=== PATIENT | female | born 1975 | race Caucasian/White ===

== ENCOUNTER 2022-02-18 11:57 | Day surgery (SDC) | payer OTHER, SELFPAY ==
[2022-02-18] VITALS (7 sets, daily range): BP systolic 105–144; BP diastolic 68–82; PULSE 54–76; RESP 14–18; TEMP 36.8–37.4; O2SAT 97–100; BMI 23.2
--- NOTE | 2022-02-18 12:49 | CRLHL7_ITS ---
For Patients: As a result of the Century Cures Act, medical imaging exams and procedure reports are released immediately into your electronic medical record. You may view this report before your referring provider. If you have questions, please contact your health care provider. INDICATION: Abdominal pain. TECHNIQUE: Ultrasound abdomen limited. Sonographic images of the right upper quadrant were obtained using briceno-scale and color Doppler images. COMPARISON: None. FINDINGS: Liver: Normal in size and echotexture. Hypoechoic lesion within the right hepatic lobe measuring 1.6 x 0.9 x 1.7 cm. No intrahepatic biliary dilatation. Gallbladder: Layering debris within the gallbladder lumen likely representing sludge. The gallbladder is distended measuring 8.1 x 4.8 centimeter. The gallbladder wall measures 4 mm. No definite stones are seen. No pericholecystic fluid. Rouge Sifter reports a positive Mckeon`s sign. Common bile duct: 4 mm. Pancreas: Visualized portions of the head and body appear uniform. The tail is obscured by bowel gas artifact.. Right kidney: Normal in size. Normal echotexture and cortex. No masses, stones, or hydronephrosis. Vasculature: Proximal abdominal aorta and IVC are normal. IMPRESSION: Sludge filled and distended gallbladder with wall thickening and binder caser reported positive Mckeon sign. Findings compatible with acute cholecystitis. CBD measures 4 millimeters. Hyperechoic right hepatic lobe lesion measuring up to 1.7 cm which most commonly represents a hemangioma. Dictated by Mani De La Cruz MD @ 02/18/2022 3:01:41 PM (Electronically Signed)
--- NOTE | 2022-02-18 13:10 | ED_ITS ---
HPI - General Adult General Date Seen: 02/18/22 Chief complaint: Abdominal Pain Stated complaint: Chest pain, fever Time Seen by Provider: 02/18/22 12:08 Source: patient History of Present Illness HPI narrative: Patient is a 46-year-old woman who presents with abdominal pain. She says that she started to feel poorly the evening before last, with just fatigue. She woke up at 4:00 a.m. yesterday, feeling vaguely ill, and by yesterday afternoon, she had some abdominal pain which was poorly localized on the right side of her abdomen. She had developed maybe a little bit of nausea, some anorexia. She has not had any vomiting. She woke up at 2:00 a.m. in the morning this morning, with more significant abdominal pain and nausea. She still has not vomited, has not had any diarrhea. She says she had a fever yesterday of 101.4, but has not had fever since then. She has never had abdominal pain like this. She tells me that 17 years ago when she was , she had a right upper quadrant ultrasound which showed sludge but has never been diagnosed with gallstones. She does feel that this pain is in the right upper quadrant now, and is worried about possible cholecystitis. 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 She has never had any abdominal surgeries. She has had 3 prior colonoscopies secondary to constipation and right upper quadrant pain, has never had any significant abnormalities. Does not have significant diverticulosis, does not have inflammatory bowel disease. Related Data Home Medications Medication Instructions Recorded Confirmed bupropion HCl 150 mg 24 hr tablet, 150 mg PO DAILY 02/18/22 02/18/22 extended release Allergies Allergy/AdvReac Type Severity Reaction Status Date / Time Penicillins Allergy Severe Hives Verified 02/18/22 12:12 [facility] Medical History No significant past medical history Surgical History (Updated 02/18/22 @ 13:26 by Lita Persaud RN) H/O knee surgery History of placement of ear tubes History of tonsillectomy and adenoidectomy S/P breast implant, saline Social History Smoking Status: Never smoker How often do you have a drink containing alcohol: 2-3 times a week AUDIT-C Alcohol total score: 3 Non-prescribed substance use: denies use Exam Const: Vital Signs, click to edit/add: Vital Signs - 24 hr 02/18/22 12:07 02/18/22 16:03 02/18/22 16:30 Temperature 99.3 F Pulse Rate [Right Pulse Oximeter] 76 64 70 Respiratory Rate 18 16 16 Blood Pressure [Ri ght Upper Arm] 119/78 121/68 144/82 H Pulse Oximetry 100 98 99 Course Course Hospital Course: Following initial evaluation, an IV was placed, she was given Toradol and Zo edilia, normal saline. Ponce improved after that for some period of time although she did develop additional pain later and was given 4 mg of morphine. I looked with the bedside ultrasound, she did have a distended gallbladder, sludge, appeared to have some wall thickening 2. Did not have any pericholecystic fluid. I did not see any obvious gallstones. We discussed how to proceed, in terms of doing a right upper quadrant ultrasound versus CT scan. Her story was not entirely typical for cholecystitis in that she did not develop right upper quadrant pain right away, sort of had this indolent course where she had nausea, just sort of felt poorly and then ultimately developed more vague right abdominal pain that now seems to have settled more in the right mid and upper abdomen. Other considerations included appendicitis, diverticulitis, colitis., hepatitis, pancreatitis. Discussed that these other diagnoses would not be found with ultrasound, and that we might ultimately have to gone to CT. She was comfortable with that we decided to start with ultrasound. Labs overall were reassuring, white blood cell count was normal, CRP was elevated at 14. LFTs were normal. Lipase was normal. Right upper quadrant ultrasound by my review also showed wall thickening, wall at 4 mm, sludge, distended gallbladder. Read by radiology as follows:IMPRESSION: Sludge filled and distended gallbladder with wall thickening and cell technician reported positive Mckeon sign. Findings compatible with acute cholecystitis. CBD measures 4 millimeters. Hyperechoic right hepatic lobe lesion measuring up to 1.7 cm which most commonly represents a hemangioma Case discussed with Dr. López, general surgery. She agrees with the diagnosis of cholecystitis and will admit patient to the hospital for planned cholecystectomy tomorrow Given a g of ertapenem given penicillin allergy. Vital Signs Vital signs: Initial Vital Signs Temperature 99.3 F 02/18/22 12:07 Temperature Source Temporal Artery Scan 02/18/22 12:07 Pulse Rate 76 02/18/22 12:07 Pulse Rhythm 02/18/22 12:07 Respiratory Rate 18 02/18/22 12:07 Blood Pressure 119/78 02/18/22 12:07 Blood Pressure Mean 91 02/18/22 12:07 Blood Pressure Position Sitting 02/18/22 12:07 Pulse Oximetry 100 02/18/22 12:07 Oxygen Delivery Method 02/18/22 12:07 Vital Signs Temperature 99.3 F 02/18/22 12:07 Pulse Rate 76 02/18/22 12:07 Respiratory Rate 18 02/18/22 12:07 Blood Pressure 119/78 02/18/22 12:07 Pulse Oximetry 100 02/18/22 12:07 Temperature 98.3 F 02/18/22 17:56 Pulse Rate 70 02/18/22 16:30 Respiratory Rate 16 02/18/22 16:30 Blood Pressure 144/82 H 02/18/22 16:30 Pulse Oximetry 99 02/18/22 16:30 Medical Decision Making Lab Data Labs: Lab Results 02/18/22 02/18/22 02/18/22 Range/Units 13:05 13:15 13:15 WBC 10.10 (4.50-11.00) K/uL RBC 4.51 (4.00-5.20) m/uL Hgb 13.9 (12.0-16.0) gm/dL Hct 41.4 (33.0-51.0) % MCV 92 (80-100) fL MCH 31 (26-34) pg MCHC 34 (32-36) gm/dL RDW Coeff of Elsa 13.4 (11.5-15.5) % Plt Count 261 (140-440) K/uL Neut % (Auto) 70.4 (42.0-72.0) % Lymph % (Auto) 16.2 L (20-44) % Turner % (Auto) 12.5 H (0.0-11.0) % Eos % (Auto) 0.3 (0.0-7.0) % Baso % (Auto) 0.1 (0.0-3.0) % Neut # (Auto) 7.11 H (1.7-7.0) K/uL Lymph # (Auto) 1.60 (0.90-2.90) K/uL Turner # (Auto) 1.30 H (0.00-0.90) K/UL Eos # (Auto) 0.03 (0.00-0.50) K/uL Baso # (Auto) 0.01 (0.00-0.30) K/uL Abs Immat Gran (auto) 0.05 (0.00-0.30) K/uL Sodium 136 (135-149) mmol/L Potassium 3.9 (3.6-5.1) mmol/L Chloride 101 (96-114) mmol/L Carbon Dioxide 28 (20-32) mmol/L BUN 13 (5-24) mg/dL Creatinine 0.7 (0.5-1.5) mg/dL Estimated Creat Clear 92.01 Estimated GFR 107 ml/min Glucose 112 (60-115) mg/dL Calcium 8.7 (8.4-10.6) mg/dL Total Bilirubin (0.1-1.5) mg/dL Direct Bilirubin (0.0-0.5) mg/dL AST (12-35) U/L ALT (4-35) U/L Alkaline Phosphatase (40-150) U/L C-Reactive Protein 14.4 H (0.5-1.0) mg/dL Total Protein (6.0-8.3) g/dL Albumin (3.3-5.0) g/dL Lipase (23-300) U/L Urine Color Yellow (Yellow) Urine Appearance Clear (Clear) Urine pH 6.5 (5.0-8.5) Ur Specific [place] 1.020 (1.000-1.030) Urine Protein Trace A (Negative) Urine Glucose (UA) Negative (Negative) Urine Ketones Negative (Negative) Urine Blood Trace-intact A (Negative) Urine Nitrite Negative (Negative) Urine Bilirubin Negative (Negative) Urine Urobilinogen 2.0 A (0.2-1.0) Ur Leukocyte Esterase Negative (Negative) Urine RBC 0-2 (0-2) Urine WBC 0-2 (0-5) Ur Squamous Epith Cells Moderate A (None-Few) Urine Bacteria None (None) Urine Mucus TNP SARS-CoV-2 (PCR) (Negative) 02/18/22 02/18/22 Range/Units 13:15 15:31 WBC (4.50-11.00) K/uL RBC (4.00-5.20) m/uL Hgb (12.0-16.0) gm/dL Hct (33.0-51.0) % MCV (80-100) fL MCH (26-34) pg MCHC (32-36) gm/dL RDW Coeff of Elsa (11.5-15.5) % Plt Count (140-440) K/uL Neut % (Auto) (42.0-72.0) % Lymph % (Auto) (20-44) % Turner % (Auto) (0.0-11.0) % Eos % (Auto) (0.0-7.0) % Baso % (Auto) (0.0-3.0) % Neut # (Auto) (1.7-7.0) K/uL Lymph # (Auto) (0.90-2.90) K/uL Turner # (Auto) (0.00-0.90) K/UL Eos # (Auto) (0.00-0.50) K/uL Baso # (Auto) (0.00-0.30) K/uL Abs Immat Gran (auto) (0.00-0.30) K/uL Sodium (135-149) mmol/L Potassium (3.6-5.1) mmol/L Chloride (96-114) mmol/L Carbon Dioxide (20-32) mmol/L BUN (5-24) mg/dL Creatinine (0.5-1.5) mg/dL Estimated Creat Clear Estimated GFR ml/min Glucose (60-115) mg/dL Calcium (8.4-10.6) mg/dL Total Bilirubin 0.6 (0.1-1.5) mg/dL Direct Bilirubin 0.2 (0.0-0.5) mg/dL AST 22 (12-35) U/L ALT 18 (4-35) U/L Alkaline Phosphatase 61 (40-150) U/L C-Reactive Protein (0.5-1.0) mg/dL Total Protein 8.3 (6.0-8.3) g/dL Albumin 4.6 (3.3-5.0) g/dL Lipase 48 (23-300) U/L Urine Color (Yellow) Urine Appearance (Clear) Urine pH (5.0-8.5) Ur Specific [place] (1.000-1.030) Urine Protein (Negative) Urine Glucose (UA) (Negative) Urine Ketones (Negative) Urine Blood (Negative) Urine Nitrite (Negative) Urine Bilirubin (Negative) Urine Urobilinogen (0.2-1.0) Ur Leukocyte Esterase (Negative) Urine RBC (0-2) Urine WBC (0-5) Ur Squamous Epith Cells (None-Few) Urine Bacteria (None) Urine Mucus SARS-CoV-2 (PCR) Negative SARS-CoV-2 (Negative) Discharge Plan Discharge Clinical Impression: Acute cholecystitis Patient Disposition: Admitted As Inpatient Condition: Stable
[2022-02-18] MEDS: 0.9 % SODIUM CHLORIDE 1000 ml 1,000 ML IV (13:15)
[2022-02-18] MEDS: KETOROLAC 15 MG/ML inj IVP (13:22)
[2022-02-18] MEDS: ONDANSETRON 2 MG/ML inj 4 MG IVP (13:22)
[2022-02-18 13:23] LABS: Appearance Urine Clear (Clear); Bilirubin Urine Negative (Negative); Blood Urine Trace-intact (Negative); Color Urine Yellow (Yellow); Glucose Urine Negative (Negative); Ketones Urine Negative (Negative); Leukocyte Esterase Urine Negative (Negative); Nitrite Urine Negative (Negative); Protein Urine Trace (Negative); pH Urine 6.5 (5.0-8.5)
[2022-02-18 13:26] LABS: Basophils Absolute Auto 0.01 K/uL (0.00-0.30); Basophils Percent Auto 0.1 % (0.0-3.0); Eosinophils Absolute Auto 0.03 K/uL (0.00-0.50); Eosinophils Percent Auto 0.3 % (0.0-7.0); Hematocrit 41.4 % (33.0-51.0); Hemoglobin* 13.9 gm/dL (12.0-16.0); Immature Granulocytes Abs Auto 0.05 K/uL (0.00-0.30); Lymphocytes Percent Auto 16.2 % (20-44); Mean Corpuscular HGB Conc 34 gm/dL (32-36); Mean Corpuscular Hemoglobin 31 pg (26-34); Mean Corpuscular Volume 92 fL (80-100); Monocytes Percent Auto 12.5 % (0.0-11.0); Neutrophils Absolute Auto 7.11 K/uL (1.7-7.0); Neutrophils Percent Auto 70.4 % (42.0-72.0); Platelet Count* 261 K/uL (140-440); RDW Coefficient of Variation % 13.4 % (11.5-15.5); Red Blood Count 4.51 m/uL (4.00-5.20)
[2022-02-18 13:33] LABS: RBC Urine 0-2 (0-2); Squamous Epithelial Cell Urine Moderate (None-Few); WBC Urine 0-2 (0-5)
[2022-02-18 13:35] LABS: Slide Review Reflex No
[2022-02-18 13:44] LABS: Albumin* 4.6 g/dL (3.3-5.0)
[2022-02-18 13:45] LABS: Chloride* 101 mmol/L (96-114); Potassium* 3.9 mmol/L (3.6-5.1); Sodium* 136 mmol/L (135-149)
[2022-02-18 13:47] LABS: Alkaline Phosphatase* 61 U/L (40-150); Aspartate Amino Transferase* 22 U/L (12-35); Bilirubin Direct* 0.2 mg/dL (0.0-0.5); Bilirubin Total* 0.6 mg/dL (0.1-1.5); Total Protein* 8.3 g/dL (6.0-8.3)
[2022-02-18 13:48] LABS: Alanine Aminotransferase* 18 U/L (4-35); Creatinine* 0.7 mg/dL (0.5-1.5); Est. Creatinine Clearance* 92.01; Estimated Glomerular Filt Rate 107 ml/min; Lipase* 48 U/L (23-300)
[2022-02-18 13:49] LABS: Blood Urea Nitrogen* 13 mg/dL (5-24); Calcium* 8.7 mg/dL (8.4-10.6); Carbon Dioxide* 28 mmol/L (20-32); Glucose* 112 mg/dL (60-115)
[2022-02-18 14:04] LABS: C Reactive Protein* 14.4 mg/dL (0.5-1.0)
[2022-02-18] MEDS: MORPHINE 4 MG/ML INJ IVP (15:56)
--- NOTE | 2022-02-18 16:39 | W.PC.EDHO ---
Primary Language: Preferred Language: Orientation Status: [x] Alert & Oriented [] Slight Confusion [] Known Dx Dementia Transfers By: [x] Assist of 1 [] Assist of 2 [] Lift Active Medications Discontinued Medications Generic Name Dose Route Start Last Admin Trade Name Kimberly PRN Reason Stop Dose Admin Sodium Chloride 1,000 mls @ 1,000 mls/hr 02/18/22 13:00 02/18/22 14:21 0.9 % Sodium Chloride 1000 Ml IV 02/18/22 13:59 Infused .Q1H NEHA Infusion Ketorolac Tromethamine 15 mg 02/18/22 12:49 02/18/22 13:22 Ketorolac 15 Mg/Ml Inj IVP 02/18/22 12:50 15 mg ONCE ONE Administration Morphine Sulfate 4 mg 02/18/22 15:51 02/18/22 15:56 Morphine 4 Mg/Ml Inj IVP 02/18/22 15:52 4 mg ONCE ONE Administration Ondansetron HCl 4 mg 02/18/22 12:49 02/18/22 13:22 Ondansetron 2 Mg/Ml Inj IVP 02/18/22 12:50 4 mg ONCE ONE Administration Description of Symptoms ED Triage Present Problem Pt states she started having RUQ abdominal/ Description epigastric pain yesterday. Has had fever of 101.4 in last 24 hrs and has taken 1000mg Tylenol at 0300. denies N/V/D. Suspects Priscilla. C/O generalized back pain as well. ED Triage Date of Onset of 02/17/22 Symptoms Female History Hx Last Menstrual Period pt has IUD Patient No Pain Pain Description [Abdomen] Acute Pain Radiation Location [ 8 Abdomen] Pain Intensity [Abdomen] 8 Pain Intensity 6 Pain Intensity 7 Pain Intensity 4 Pain Intensity 2 Pain Intensity 4 Pain Intensity 8 Pain Scale Used [Abdomen] Numeric (1 - 10) Pain Scale Used [Abdomen] Numeric (1 - 10) Pain Scale Used Numeric (1 - 10) Pain Scale Used Numeric (1 - 10) Pain Scale Used Numeric (1 - 10) Pain Scale Used Numeric (1 - 10) Oxygen Administration Pulse Oximetry 98 Pulse Oximetry 100 Oxygen Delivery Method Room Air Oxygen Delivery Method Room Air
--- NOTE | 2022-02-18 16:45 | ED.NURSE ---
dr. cummings saw pt and plan surgery for tomorrow. pt drinking clear liquids now.
[2022-02-18 16:47] LABS: SARS PCR* Negative SARS-CoV-2 (Negative)
--- NOTE | 2022-02-18 16:50 | P.GSCN_ITS ---
History of Present Illness Consult details Consult date: 02/18/22 Narrative: Patient presented to the emergency department for persistent right upper quadrant abdominal pain. She states that the pain started yesterday evening. Initially she thought it might be related to constipation, however the pain continued to intensify throughout the night and this morning. She also reports poor appetite and associated nausea. She had a fever yesterday of 101.4, but none since. She does note that 17 years ago she had an abdominal ultrasound, which showed sludge but no gallstones. This was during her last . Abdominal surgical history positive for umbilical hernia repair as a . No problems with anesthesia. 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 Review of Systems Status of ROS: Reports: 10 or more systems reviewed and unremarkable except as noted in History and below [facility] Medical History No significant past medical history Surgical History (Updated 02/18/22 @ 13:26 by Lita Persaud RN) H/O knee surgery History of placement of ear tubes History of tonsillectomy and adenoidectomy S/P breast implant, saline Social History Smoking Status: Never smoker How often do you have a drink containing alcohol: 2-3 times a week AUDIT-C Alcohol total score: 3 Non-prescribed substance use: denies use Meds Home Medications and Allergies Home Medications Medication Instructions Recorded Confirmed Type bupropion HCl 150 mg tablet,12 hr 150 mg PO DAILY 02/18/22 02/18/22 History sustained-release magnesium 100 mg tablet 300 mg PO 02/18/22 History Allergies Allergy/AdvReac Type Severity Reaction Status Date / Time Penicillins Allergy Severe Hives Verified 02/18/22 12:12 Exam Narrative: Exam Narrative: General: Alert and oriented, no acute distress. Lying comfortably in bed. Respiratory: Equal breath rise bilaterally, maintained on room air CV: Regular rhythm and rate, well perfused Abdomen: Soft, nondistended, tender to palpation right upper quadrant with some guarding. Positive Mckeon sign. Const: Vital Signs, click to edit/add: Vital Signs - 24 hr 02/18/22 12:07 02/18/22 16:03 02/18/22 16:30 Temperature 99.3 F Pulse Rate [Right Pulse Oximeter] 76 64 70 Respiratory Rate 18 16 16 Blood Pressure [Ri t Upper Arm] 119/78 121/68 144/82 H Pulse Oximetry 100 98 99 Results Labs Labs: Abnormal lab results 02/18/22 02/18/22 02/18/22 Range/Units 13:05 13:15 13:15 Lymph % (Auto) 16.2 L (20-44) % [place] % (Auto) 12.5 H (0.0-11.0) % Neut # (Auto) 7.11 H (1.7-7.0) K/uL [place] # (Auto) 1.30 H (0.00-0.90) K/UL C-Reactive Protein 14.4 H (0.5-1.0) mg/dL Urine Protein Trace A (Negative) Urine Blood Trace-intact A (Negative) Urine Urobilinogen 2.0 A (0.2-1.0) Ur Squamous Epith Cells Moderate A (None-Few) Diabetes panel 02/18/22 02/18/22 Range/Units 13:15 13:15 Sodium 136 (135-149) mmol/L Potassium 3.9 (3.6-5.1) mmol/L Chloride 101 (96-114) mmol/L Carbon Dioxide 28 (20-32) mmol/L BUN 13 (5-24) mg/dL Creatinine 0.7 (0.5-1.5) mg/dL Glucose 112 (60-115) mg/dL Calcium 8.7 (8.4-10.6) mg/dL AST 22 (12-35) U/L ALT 18 (4-35) U/L Alkaline Phosphatase 61 (40-150) U/L Total Protein 8.3 (6.0-8.3) g/dL Albumin 4.6 (3.3-5.0) g/dL Calcium panel 02/18/22 02/18/22 Range/Units 13:15 13:15 Calcium 8.7 (8.4-10.6) mg/dL Albumin 4.6 (3.3-5.0) g/dL Pituitary panel 02/18/22 Range/Units 13:15 Sodium 136 (135-149) mmol/L Potassium 3.9 (3.6-5.1) mmol/L Chloride 101 (96-114) mmol/L Carbon Dioxide 28 (20-32) mmol/L BUN 13 (5-24) mg/dL Creatinine 0.7 (0.5-1.5) mg/dL Glucose 112 (60-115) mg/dL Calcium 8.7 (8.4-10.6) mg/dL Adrenal panel 02/18/22 02/18/22 Range/Units 13:15 13:15 Sodium 136 (135-149) mmol/L Potassium 3.9 (3.6-5.1) mmol/L Chloride 101 (96-114) mmol/L Carbon Dioxide 28 (20-32) mmol/L BUN 13 (5-24) mg/dL Creatinine 0.7 (0.5-1.5) mg/dL Glucose 112 (60-115) mg/dL Calcium 8.7 (8.4-10.6) mg/dL Total Bilirubin 0.6 (0.1-1.5) mg/dL AST 22 (12-35) U/L ALT 18 (4-35) U/L Alkaline Phosphatase 61 (40-150) U/L Total Protein 8.3 (6.0-8.3) g/dL Albumin 4.6 (3.3-5.0) g/dL All other labs normal. Imaging Abdominal ultrasound report/results: report reviewed Assessment and Plan Assessment and plan (1) Acute cholecystitis: Status: Acute Plan Patient is an otherwise healthy 46-year-old female with findings consistent with acute cholecystitis. Vital signs stable on admission. Labs demonstrate no leukocytosis and normal LFTs. Abdominal ultrasound shows gallbladder wall thickening, pericholecystic fluid and presence of sludge. On exam she does have a positive Mckeon sign. I had a detailed conversation with the patient regarding the diagnosis of cholecystitis. We discussed the treatment options including observation with diet modification and laparoscopic cholecystectomy. We discussed the risks of surgery (including but not limited to) the risks of bleeding, infection, injury to other structures in the abdomen including bile duct injury, bile leak and conversion to an open operation. We discussed the possibility that the patient's pain not improve with surgery. We discussed the possibility of permanent post-operative diarrhea that may require medical management. Additionally, the conceivably of complications requiring additional surgery or further hospitalization were also discussed including the risks of ND, respiratory failure, stroke and blood clots. The patient voiced an unders tanding of our conversation, had the opportunity to ask questions, agreed to accept the risks of surgery and asked that we proceed with surgery. Will admit the patient this evening and plan for surgery tomorrow. -okay for clear liquid diet, NPO at midnight -IV fluids at midnight once NPO -IV and p.o. pain meds as needed -IV Zofran as needed for nausea -encourage ambulation, SCDs for DVT prophylaxis -patient will be getting ertapenem in the emergency department
[2022-02-18] MEDS: ERTAPENEM 1 GM in 0.9 % SODIUM CHLORIDE Mini-bag 100 ML IVPB (16:57)
--- NOTE | 2022-02-18 17:24 | ED.NURSE ---
pt transferred to room 261 via wheelchair with belongings
[2022-02-18] MEDS: ACETAMINOPHEN 325 MG TABLET 650 MG PO (17:56)
[2022-02-18] MEDS: IBUPROFEN 400 MG TABLET PO (19:23)
[2022-02-18] MEDS: HYDROmorphone 0.5 mg/0.5 ml inj IVP (22:00)
[2022-02-19] VITALS (21 sets, daily range): BP systolic 100–142; BP diastolic 52–77; PULSE 50–97; RESP 12–16; TEMP 36.1–38; O2SAT 95–100
[2022-02-19] MEDS: OXYCODONE 5 MG TABLET PO ×4 (00:04→19:11)
[2022-02-19] MEDS: HYDROmorphone 0.5 mg/0.5 ml inj IVP ×2 (04:42→16:23)
--- NOTE | 2022-02-19 06:45 | PC.NURSE ---
SHIFT NOTE -: Pt A&O, pleasant and cooperative. PRN Oxycodone and PRN Dilaudid given for abdominal pain with pt reporting relief. Afebrile, oxygen saturations >90% on room air. Denies SOB, CP, and N/V. Up independent and tolerating well. NPO at midnight for plan to have sx today.
[2022-02-19] MEDS: IBUPROFEN 400 MG TABLET PO (07:34)
[2022-02-19] MEDS: ONDANSETRON 2 MG/ML inj 4 MG IVP (08:18)
[2022-02-19] MEDS: SODIUM CHLORIDE 0.9 % (FLUSH) 10 ML SYRINGE 5 ML IVF ×3 (08:23→16:23)
[2022-02-19] MEDS: 0.9 % SODIUM CHLORIDE 1000 ml 1,000 ML 125 ML IV ×3 (08:27→16:18)
[2022-02-19] MEDS: ACETAMINOPHEN 325 MG TABLET 650 MG PO ×2 (08:55→16:05)
[2022-02-19] MEDS: BUPIVACAINE 0.5% 30 ML 10 ML INJECTION (14:22)
--- NOTE | 2022-02-19 14:24 | PM.GSPRC ---
Operative Note Date of procedure: 02/19/22 Type of Procedure: Laparoscopic cholecystectomy Procedure Description: After discussing the risks and benefits of the procedure, the patient signed informed consent.? The operative site was marked and the patient was brought to the operating room and placed on the operating table in supine position.? Care was taken to pad the patient's pressure points.?? The patient was then intubated by anesthesia.?? The operative site was then prepped and draped in the usual sterile fashion.? A time-out was then performed. ?Entrance to the abdomen was gained via a 5 mm Visiport in the left upper quadrant. The abdomen was insufflated and briefly surveyed for signs of injury. There was none. 11 mm umbilical port was placed as well as 2 working ports along the right costal margin. Patient was then placed in reverse Trendelenburg position with the right side up. The gallbladder fundus was distended. A laparoscopic needle was used to decompress the gallbladder in a order for to be grasped and retracted cephalad. A small amount of dissection was needed to free omental adhesions from the gallbladder. The infundibulum was grasped. A combination of hook cautery and blunt dissection was used to carefully dissect out the cystic duct and artery until they could clearly be seen entering the gallbladder without any intervening structures. The gallbladder was dissected off the cystic plate to achieve the critical view. Once this was achieved the cystic duct and artery were each clipped with 2 clips proximally and 1 clip distally and transected with the scissors. The gallbladder was then taken off of the liver bed. And removed from the abdomen using an Endo-Catch bag. The gallbladder bed was surveyed for hemostasis. A small amount of bile which had spilled was suctioned from the abdomen the ports were then removed under direct vision. The umbilical port fascia was closed with 0 Vicryl. The skin was closed with absorbable subcuticular suture. Instrument sponge and needle counts were correct at the end of the case. The patient was then woken and transferred to the PACU in stable condition. Sterile dressings were then applied. ? The patient was then woken and transported to the recovery area in stable condition. ? The patient tolerated the procedure well. Findings: Distended gallbladder with surrounding inflammation. Anesthesia: GETA Surgeon: Tara López MD Estimated blood loss (mL): 10 Condition: stable Disposition: same day
--- NOTE | 2022-02-19 14:40 | W.ANESCHARGE ---
Anesthesia Charges Start Date/Time Anesthesia Start Date: 02/19/22 Anesthesia Start Time: 12:56 Stop Date/Time Anesthesia Stop Date: 02/19/22 Anesthesia Stop Time: 14:40 Summary Emergency: No
--- NOTE | 2022-02-19 14:41 | W.ANESCHARGE ---
Anesthesia Charges Start Date/Time Anesthesia Start Date: 02/19/22 Anesthesia Start Time: 12:56 Stop Date/Time Anesthesia Stop Date: 02/19/22 Anesthesia Stop Time: 14:40 Summary Emergency: No
[2022-02-19] MEDS: fentaNYL 100 MCG/2 ML inj 50 MCG IVP (15:15)
[2022-02-19] MEDS: hydrOXYzine pamoate 25 MG CAPSULE PO (16:17)
--- NOTE | 2022-02-19 17:48 | PM.DS1 ---
DS: Providers Provider Date Seen: 02/19/22 Primary care physician: Not a Local Provider Consults: 02/19/22 13:36 Consult to Extruder Operator Helper [CONS] Routine Comment: Reason for Consult:: Social Service Consult Attending Physician on discharge: Tara López MD DS: Diagnosis Discharge Diagnosis (1) Acute cholecystitis: Status: Acute DS: Summary Hospital Course Hospital Course: Patient was admitted from the emergency department with findings of acute cholecystitis. She underwent a laparoscopic cholecystectomy and did well postoperatively. On the day of discharge she was tolerating regular diet, ambulating independently and pain was controlled with oral medications. Status at Discharge Functional status at discharge: independent ambulation Overall status at discharge: patient is progressing back to baseline Time Spent with Patient Time attestation: Total time spent providing and/or coordinating discharge services: Exam Narrative: Exam Narrative: Patient was discharged prior to being seen. Please see consultation note from same day. Const: Vital Signs, click to edit/add: Vital Signs - 24 hr 02/18/22 17:56 02/18/22 19:00 02/18/22 19:15 Temperature 98.3 F 99.2 F 98.3 F Pulse Rate Pulse Rate [Pulse Oximeter] 54 L 65 Respiratory Rate 16 16 Blood Pressure Blood Pressure [Ri ght Arm] 105/68 117/74 Pulse Oximetry 97 100 02/18/22 23:00 02/19/22 03:50 02/19/22 07:00 Temperature 98.8 F 98.9 F 98.9 F Pulse Rate Pulse Rate [Pulse Oximeter] 62 74 60 Respiratory Rate 14 16 14 Blood Pressure Blood Pressure [Ri ght Arm] 121/68 100/62 113/61 Pulse Oximetry 98 99 96 02/19/22 11:00 02/19/22 14:40 02/19/22 14:45 Temperature 97 F L 97.4 F L Pulse Rate 76 55 L Pulse Rate [Pulse Oximeter] 57 L Respiratory Rate 14 16 14 Blood Pressure 125/73 137/68 Blood Pressure [Ri ght Arm] 125/67 Pulse Oximetry 99 98 99 02/19/22 14:50 02/19/22 14:55 02/19/22 15:00 Temperature Pulse Rate 56 L 55 L 50 L Pulse Rate [Pulse Oximeter] 61 Respiratory Rate 14 14 14 Blood Pressure 131/71 131/74 130/68 Blood Pressure [Ri ght Arm] Pulse Oximetry 97 98 97 02/19/22 15:05 02/19/22 15:10 02/19/22 15:15 Temperature Pulse Rate 52 L 56 L 50 L Pulse Rate [Pulse Oximeter] Respiratory Rate 14 12 12 Blood Pressure 121/71 140/76 H 137/68 Blood Pressure [Ri ght Arm] Pulse Oximetry 100 100 98 02/19/22 15:20 02/19/22 15:25 02/19/22 15:34 Temperature 97.5 F L 99.2 F Pulse Rate 62 55 L 52 L Pulse Rate [Pulse Oximeter] Respiratory Rate 12 12 14 Blood Pressure 142/77 H 142/76 H Blood Pressure [Ri ght Arm] 136/66 Pulse Oximetry 100 99 02/19/22 15:45 02/19/22 16:00 02/19/22 16:15 Temperature 99.2 F 99.1 F 100.1 F H Pulse Rate Pulse Rate [Pulse Oximeter] 97 51 L 67 Respiratory Rate 14 14 14 Blood Pressure Blood Pressure [Ri ght Arm] 119/59 L 116/54 L 129/71 Pulse Oximetry 99 96 96 02/19/22 16:30 02/19/22 17:00 02/19/22 17:30 Temperature 100.1 F H 100.2 F H 100.3 F H Pulse Rate Pulse Rate [Pulse Oximeter] 61 56 L 76 Respiratory Rate 14 14 14 Blood Pressure Blood Pressure [Ri ght Arm] 119/68 103/61 123/66 Pulse Oximetry 98 96 95 DS: Data Data Completed and Pending Labs on day of discharge: Labs from last 24 hours 02/19/22 14:29 Surg PTH (Off-Site) Pending Discharge Plan Discharge Disposition: Home, Self-Care Discharging Surgeon: Tara López Follow-Up Appointment: 2 week follow up Prescriptions: New oxycodone 5 mg Tablet 5 - 10 mg PO Q4H PRN (Reason: Pain) Qty: 20 0RF sennosides [Senna Lax] 8.6 mg tablet 8.6 mg PO BID PRN (Reason: constipation) Qty: 90 0RF Rx Instructions: Please take stool softeners while on narcotic pain medication. Stop if having > 2 stools per day. Continued bupropion HCl 150 mg tablet extended release 24 hr 150 mg PO DAILY 0RF Label Comments: TAKE 1 TABLET BY MOUTH EVERY DAY Activity Level: Activity as Tolerated Activity Detail: Activity as tolerated. Avoid strenuous activity. No lifting greater than 20 lb for 2 weeks. Discharge Diet: Regular Diet Detail: Low-fat Patient Instructions: Laxative, Stimulant (By mouth), Oxycodone, Rapid Release (By mouth), Surgical Site Infections (DC), General Anesthesia (DC), Laparoscopic Cholecystectomy (DC), Post-Operative Instructions: Laparoscopic Cholecystectomy Forms: Work/Release Restrictions Follow-up: Tara López MD [Staff Physician] - 03/03/22 2:15 pm Provider,Not a Local [Primary Care Provider] - Discharge Orders: Discharge Order (Routine); Ordered 02/19/22 Ordered By: Tara López
--- NOTE | 2022-02-19 19:25 | PC.NURSE ---
End of Shift: Patient pleasant and cooperative. Patient vitally stable, lungs clear, BS WNL, IV removed catheter intact. Patient initially was in a lot of pain when arriving from surgery. Tylenol, 5 mg of oxy, hydroxyzine, and 1 mg of Dilaudid was given.Patient's pain did improve. Patient urinated 100 ml, drinking fluids, and at 75% of regular diet. Discharge belongings sheet and discharge form signed, awaiting ride.
--- NOTE | 2022-02-19 19:44 | PC.NURSE ---
Patient left the floor by wheelchair at 1940 with family members and belongings.
== END 2022-02-19 19:40 | disposition home or self-care (01) ==
LOC: ED 16:43 → MEDSURG 16:53 → SS 02-19 09:01 → MEDSURG 02-19 09:02
PROVIDERS: Emergency Provider Emergency Medicine; Visit Provider Surgery
PROC: 0FT44ZZ Resection of Gallbladder, Percutaneous Endoscopic Approach (ICD-10-PCS; CPT 47562; principal; 2022-02-19 13:00)
DX: K81.2 Acute cholecystitis with chronic cholecystitis (principal); R10.11 Right upper quadrant pain; K76.9 Liver disease, unspecified
CPT/HCPCS: 47562; 00790; 36415; 76705; 80048; 80076; 81001; 83690; 85025; 86140; 87635; 88304; 99284; A9270; J0330; J1100; J1170; J1200; J1335; J1885; J2270; J2405; J2704; J2710; J3010; J3490; J7030; S0077